=== PATIENT | female | born 1965 | race Caucasian/White ===

== ENCOUNTER 2017-07-20 08:17 | Inpatient (IN) | payer OTHER ==
[2017-07-20] MEDS: SOD CHLORIDE 0.9% 1,000 ML IV (16:32)
[2017-07-20 16:54] LABS: ADD MAN DIFF? NO
[2017-07-20 16:56] LABS: WHITE BLOOD COUNT 10.9 10^3/ul (4.8-10.8)
[2017-07-20 16:56] LABS: BASOPHIL # 0.1 10^3/ul (0.0-0.1); BASOPHILS % 0.9 % (0.0-2.0); EOSINOPHILS # 0.2 10^3/ul (0.0-0.5); EOSINOPHILS % 1.8 % (0.0-7.0); HEMATOCRIT 42.2 % (37.0-47.0); HEMOGLOBIN 14.4 g/dl (12.0-16.0); LYMPHOCYTES # 3.3 10^3/ul (0.8-2.9); LYMPHOCYTES % 30.1 % (15.0-51.0); MEAN CORPUSCULAR HEMOGLOBIN 30.7 pg (29.0-33.0); MEAN CORPUSCULAR HGB CONC 34.1 g/dl (32.0-37.0); MEAN PLATELET VOLUME 9.1 fl (7.4-10.4); MONOCYTE # 0.8 10^3/ul (0.3-0.9); MONOCYTES % 7.6 % (0.0-11.0); NEUTROPHIL # 6.4 10^3/ul (1.6-7.5); NEUTROPHILS % 59.1 % (39.0-77.0); PLATELET COUNT 234 10^3/UL (140-415); RED BLOOD COUNT 4.69 10^6/ul (4.20-5.40); RED CELL DISTRIBUTION WIDTH 12.8 % (11.5-14.5)
[2017-07-20 17:12] LABS: INR 0.93; PROTIME 12.5 Sec (11.9-14.9)
[2017-07-20 17:13] LABS: PARTIAL THROMBOPLASTIN TIME 28.8 Sec (25.0-35.0)
[2017-07-20 17:17] LABS: ANION GAP 19 (8-16); BLOOD UREA NITROGEN 16 mg/dl (7-20); CALCIUM 9.6 mg/dl (8.4-10.2); CARBON DIOXIDE 21 mmol/L (21-31); CHLORIDE 106 mmol/L (97-110); CREATININE 0.89 mg/dl (0.44-1.00); GLUCOSE 93 mg/dl (70-220); POTASSIUM 4.1 mmol/L (3.5-5.1); SODIUM 142 mmol/L (135-144)
[2017-07-20 17:38] LABS: TROPONIN-I 0.179 ng/ml (0.00-0.12)
[2017-07-20] MEDS ORDERED: ONDANSETRON 4 MG INJ IV (19:30)
[2017-07-20] MEDS: ENOXAPARIN 100 MG/ML SYG SC (19:34)
[2017-07-20] MEDS: ASPIRIN 81 MG TAB PO (19:35)
[2017-07-21 01:56] LABS: CREATINE KINASE 53 IU/L (23-200)
[2017-07-21] MEDS ORDERED: ALBUTEROL/IPRATROPIUM (NEB) 3 ML AMP HHN (02:00)
[2017-07-21] MEDS ORDERED: morphine 4 MG/ML VIAL IV (02:00)
[2017-07-21 02:08] LABS: CK INDEX 2.8; TROPONIN-I 0.109 ng/ml (0.00-0.12)
[2017-07-21] MEDS: ATORVASTATIN 20 MG TAB PO (02:25)
[2017-07-21 07:30] LABS: ADD MAN DIFF? NO
[2017-07-21 07:37] LABS: WHITE BLOOD COUNT 7.6 10^3/ul (4.8-10.8)
[2017-07-21 07:37] LABS: BASOPHIL # 0.1 10^3/ul (0.0-0.1); BASOPHILS % 1.3 % (0.0-2.0); EOSINOPHILS # 0.3 10^3/ul (0.0-0.5); EOSINOPHILS % 3.7 % (0.0-7.0); HEMATOCRIT 36.6 % (37.0-47.0); LYMPHOCYTES # 2.8 10^3/ul (0.8-2.9); LYMPHOCYTES % 36.9 % (15.0-51.0); MEAN CORPUSCULAR HEMOGLOBIN 29.6 pg (29.0-33.0); MEAN CORPUSCULAR HGB CONC 32.8 g/dl (32.0-37.0); MEAN CORPUSCULAR VOLUME 90.4 fl (82.0-101.0); MEAN PLATELET VOLUME 9.5 fl (7.4-10.4); MONOCYTE # 0.8 10^3/ul (0.3-0.9); MONOCYTES % 10.1 % (0.0-11.0); NEUTROPHIL # 3.6 10^3/ul (1.6-7.5); NEUTROPHILS % 47.7 % (39.0-77.0); PLATELET COUNT 185 10^3/UL (140-415); RED BLOOD COUNT 4.05 10^6/ul (4.20-5.40); RED CELL DISTRIBUTION WIDTH 12.7 % (11.5-14.5)
[2017-07-21 08:18] LABS: ALANINE AMINOTRANSFERASE 27 IU/L (13-69); ALBUMIN 3.7 g/dl (3.3-4.9); ALBUMIN/GLOBULIN RATIO 1.37; ALKALINE PHOSPHATASE 55 IU/L (42-121); ANION GAP 19 (8-16); ASPARTATE AMINO TRANSFERASE 15 IU/L (15-46); BILIRUBIN,INDIRECT 0.2 mg/dl (0-1.1); BILIRUBIN,TOTAL 0.2 mg/dl (0.2-1.3); BLOOD UREA NITROGEN 19 mg/dl (7-20); CALCIUM 8.9 mg/dl (8.4-10.2); CARBON DIOXIDE 20 mmol/L (21-31); CHLORIDE 108 mmol/L (97-110); CHOL/HDL RATIO 5.3 RATIO; CHOLESTEROL 191 mg/dl (100-200); CREATININE 0.91 mg/dl (0.44-1.00); GLUCOSE 90 mg/dl (70-220); HDL CHOLESTEROL 36 mg/dl (37-92); LDL CHOLESTEROL,CALCULATED 102 mg/dl; POTASSIUM 4.2 mmol/L (3.5-5.1); SODIUM 143 mmol/L (135-144); TOTAL PROTEIN 6.4 g/dl (6.1-8.1); TRIGLYCERIDES 265 mg/dl (0-149)
[2017-07-21 08:21] LABS: CREATINE KINASE 44 IU/L (23-200)
[2017-07-21 08:24] LABS: CK INDEX 2.8; CK-MB 1.24 ng/ml (0.0-2.4); TROPONIN-I 0.087 ng/ml (0.00-0.12)
[2017-07-21 08:25] LABS: HEMOGLOBIN A1C 4.9 % (0-5.9)
[2017-07-21] MEDS: LORATADINE 10 MG TAB PO (08:43)
[2017-07-21] MEDS: ACETAMINOPHEN 325 MG TAB PO ×2 (08:43→20:10)
[2017-07-21] MEDS ORDERED: LORAZEPAM 0.5 MG TAB PO (09:00)
[2017-07-21] MEDS: ASPIRIN (EC) 81 MG TAB PO (09:38)
[2017-07-21 15:10] LABS: TROPONIN-I 0.052 ng/ml (0.00-0.12)
[2017-07-21 15:22] LABS: B-TYPE NATRIURETIC PEPTIDE 937 PG/ML (0-125)
[2017-07-21] MEDS: ATORVASTATIN 40 MG TAB PO (20:10)
[2017-07-21 20:15] LABS: TROPONIN-I 0.051 ng/ml (0.00-0.12)
[2017-07-22 03:59] LABS: ADD MAN DIFF? NO
[2017-07-22 04:11] LABS: BASOPHIL # 0.1 10^3/ul (0.0-0.1); BASOPHILS % 1.4 % (0.0-2.0); EOSINOPHILS # 0.3 10^3/ul (0.0-0.5); EOSINOPHILS % 4.1 % (0.0-7.0); HEMATOCRIT 38.2 % (37.0-47.0); HEMOGLOBIN 12.8 g/dl (12.0-16.0); LYMPHOCYTES # 2.8 10^3/ul (0.8-2.9); LYMPHOCYTES % 38.1 % (15.0-51.0); MEAN CORPUSCULAR HEMOGLOBIN 30.3 pg (29.0-33.0); MEAN CORPUSCULAR HGB CONC 33.5 g/dl (32.0-37.0); MEAN CORPUSCULAR VOLUME 90.5 fl (82.0-101.0); MEAN PLATELET VOLUME 9.5 fl (7.4-10.4); MONOCYTE # 0.6 10^3/ul (0.3-0.9); MONOCYTES % 8.4 % (0.0-11.0); NEUTROPHIL # 3.5 10^3/ul (1.6-7.5); NEUTROPHILS % 47.6 % (39.0-77.0); PLATELET COUNT 204 10^3/UL (140-415); RED BLOOD COUNT 4.22 10^6/ul (4.20-5.40); RED CELL DISTRIBUTION WIDTH 12.5 % (11.5-14.5)
[2017-07-22 04:11] LABS: WHITE BLOOD COUNT 7.4 10^3/ul (4.8-10.8)
[2017-07-22 04:40] LABS: ANION GAP 18 (8-16); BLOOD UREA NITROGEN 17 mg/dl (7-20); CALCIUM 8.8 mg/dl (8.4-10.2); CARBON DIOXIDE 21 mmol/L (21-31); CHLORIDE 109 mmol/L (97-110); CREATININE 0.89 mg/dl (0.44-1.00); GLUCOSE 95 mg/dl (70-220); POTASSIUM 4.1 mmol/L (3.5-5.1); SODIUM 144 mmol/L (135-144)
[2017-07-22 04:41] LABS: CHOL/HDL RATIO 4.9 RATIO; HDL CHOLESTEROL 40 mg/dl (37-92); LDL CHOLESTEROL,CALCULATED 115 mg/dl; TRIGLYCERIDES 222 mg/dl (0-149)
[2017-07-22 04:41] LABS: CHOLESTEROL 199 mg/dl (100-200)
[2017-07-22] MEDS: LORATADINE 10 MG TAB PO ×2 (09:00→12:26)
[2017-07-22] MEDS: ASPIRIN (EC) 81 MG TAB PO ×2 (09:00→12:26)
[2017-07-22] MEDS: REGADENOSON 0.4 MG/5 ML SYG (11:35)
[2017-07-22] MEDS: ACETAMINOPHEN 325 MG TAB PO (12:26)
[2017-07-22] MEDS: ATORVASTATIN 40 MG TAB PO (20:37)
[2017-07-23 07:50] LABS: ADD MAN DIFF? NO
[2017-07-23 07:57] LABS: WHITE BLOOD COUNT 7.6 10^3/ul (4.8-10.8)
[2017-07-23 07:57] LABS: BASOPHIL # 0.1 10^3/ul (0.0-0.1); BASOPHILS % 1.4 % (0.0-2.0); EOSINOPHILS # 0.3 10^3/ul (0.0-0.5); EOSINOPHILS % 3.7 % (0.0-7.0); HEMATOCRIT 38.5 % (37.0-47.0); HEMOGLOBIN 13.3 g/dl (12.0-16.0); LYMPHOCYTES # 2.3 10^3/ul (0.8-2.9); LYMPHOCYTES % 30.1 % (15.0-51.0); MEAN CORPUSCULAR HEMOGLOBIN 30.6 pg (29.0-33.0); MEAN CORPUSCULAR HGB CONC 34.5 g/dl (32.0-37.0); MEAN CORPUSCULAR VOLUME 88.7 fl (82.0-101.0); MEAN PLATELET VOLUME 9.5 fl (7.4-10.4); MONOCYTE # 0.6 10^3/ul (0.3-0.9); MONOCYTES % 7.9 % (0.0-11.0); NEUTROPHIL # 4.3 10^3/ul (1.6-7.5); NEUTROPHILS % 56.4 % (39.0-77.0); PLATELET COUNT 210 10^3/UL (140-415); RED BLOOD COUNT 4.34 10^6/ul (4.20-5.40); RED CELL DISTRIBUTION WIDTH 12.4 % (11.5-14.5)
[2017-07-23 08:26] LABS: ANION GAP 18 (8-16); BLOOD UREA NITROGEN 15 mg/dl (7-20); CARBON DIOXIDE 21 mmol/L (21-31); CHLORIDE 107 mmol/L (97-110); CREATININE 0.85 mg/dl (0.44-1.00); GLUCOSE 88 mg/dl (70-220); POTASSIUM 4.2 mmol/L (3.5-5.1); SODIUM 142 mmol/L (135-144)
[2017-07-23] MEDS: LORATADINE 10 MG TAB PO (09:07)
[2017-07-23] MEDS: ASPIRIN (EC) 81 MG TAB PO (09:07)
[2017-07-23] MEDS: INFLUENZA VIRUS VACCINE 0.5 ML (DISPENSING) IM* (10:06)
[2017-07-23] MEDS: SOD CHLORIDE 0.9% 1,000 ML IV ×2 (12:40→22:00)
[2017-07-23] MEDS: METHYLPREDNISOLONE 125 MG INJ IV ×2 (12:41→17:43)
[2017-07-23] MEDS ORDERED: METHYLPREDNISOLONE 125 MG INJ IM (17:00)
[2017-07-23] MEDS: DIPHENHYDRAMINE 50 MG INJ IV (17:19)
[2017-07-23] MEDS: FAMOTIDINE 20 MG INJ IV (17:21)
[2017-07-23] MEDS ORDERED: IODIXANOL LOCM 100 ML BTL (18:29)
[2017-07-23] MEDS ORDERED: SOD CHLORIDE 0.9% 100 ML (18:29)
[2017-07-23] MEDS: ATORVASTATIN 20 MG TAB PO (20:26)
[2017-07-23] MEDS: APIXABAN 5 MG TABLET PO ×2 (20:27→20:28)
[2017-07-23] MEDS: ACETAMINOPHEN 325 MG TAB PO (23:33)
[2017-07-24 07:27] LABS: ADD MAN DIFF? NO
[2017-07-24 07:33] LABS: BASOPHILS % 0.1 % (0.0-2.0); HEMOGLOBIN 13.1 g/dl (12.0-16.0); LYMPHOCYTES # 1.2 10^3/ul (0.8-2.9); LYMPHOCYTES % 9.8 % (15.0-51.0); MEAN CORPUSCULAR HEMOGLOBIN 30.3 pg (29.0-33.0); MEAN CORPUSCULAR HGB CONC 34.5 g/dl (32.0-37.0); MEAN PLATELET VOLUME 9.4 fl (7.4-10.4); MONOCYTE # 0.3 10^3/ul (0.3-0.9); MONOCYTES % 2.4 % (0.0-11.0); NEUTROPHIL # 10.3 10^3/ul (1.6-7.5); NEUTROPHILS % 86.8 % (39.0-77.0); PLATELET COUNT 260 10^3/UL (140-415); RED BLOOD COUNT 4.32 10^6/ul (4.20-5.40); RED CELL DISTRIBUTION WIDTH 12.2 % (11.5-14.5)
[2017-07-24 07:33] LABS: WHITE BLOOD COUNT 11.8 10^3/ul (4.8-10.8)
[2017-07-24 08:04] LABS: ANION GAP 19 (8-16); BLOOD UREA NITROGEN 14 mg/dl (7-20); CALCIUM 9.4 mg/dl (8.4-10.2); CARBON DIOXIDE 20 mmol/L (21-31); CHLORIDE 107 mmol/L (97-110); CREATININE 0.72 mg/dl (0.44-1.00); GLUCOSE 123 mg/dl (70-220); POTASSIUM 4.2 mmol/L (3.5-5.1); SODIUM 142 mmol/L (135-144)
[2017-07-24] MEDS: APIXABAN 5 MG TABLET PO (08:26)
[2017-07-24] MEDS: LORATADINE 10 MG TAB PO (08:26)
[2017-07-24] MEDS: AMLODIPINE 2.5 MG TAB PO (08:27)
[2017-07-24] MEDS: ACETAMINOPHEN 325 MG TAB PO (08:27)
[2017-07-24] MEDS: SOD CHLORIDE 0.9% 1,000 ML IV (08:30)
[2017-07-24] MEDS: WARFARIN 5 MG TAB PO (17:28)
[2017-07-24] MEDS ORDERED: DIPHENHYDRAMINE 50 MG CAP PO (19:00)
[2017-07-24] MEDS: METOPROLOL 25 MG TAB PO (20:51)
[2017-07-24] MEDS: ATORVASTATIN 20 MG TAB PO (20:51)
[2017-07-24] MEDS: ENOXAPARIN 100 MG/ML SYG SC (21:03)
[2017-07-25 08:54] LABS: ADD MAN DIFF? NO
[2017-07-25 09:00] LABS: WHITE BLOOD COUNT 11.3 10^3/ul (4.8-10.8)
[2017-07-25 09:00] LABS: BASOPHIL # 0.1 10^3/ul (0.0-0.1); BASOPHILS % 0.7 % (0.0-2.0); EOSINOPHILS # 0.1 10^3/ul (0.0-0.5); HEMATOCRIT 36.7 % (37.0-47.0); HEMOGLOBIN 12.1 g/dl (12.0-16.0); LYMPHOCYTES # 3.9 10^3/ul (0.8-2.9); LYMPHOCYTES % 34.3 % (15.0-51.0); MEAN CORPUSCULAR HEMOGLOBIN 29.7 pg (29.0-33.0); MEAN CORPUSCULAR VOLUME 90.2 fl (82.0-101.0); MEAN PLATELET VOLUME 9.5 fl (7.4-10.4); MONOCYTE # 0.8 10^3/ul (0.3-0.9); MONOCYTES % 6.7 % (0.0-11.0); NEUTROPHIL # 6.4 10^3/ul (1.6-7.5); NEUTROPHILS % 56.9 % (39.0-77.0); PLATELET COUNT 249 10^3/UL (140-415); RED BLOOD COUNT 4.07 10^6/ul (4.20-5.40); RED CELL DISTRIBUTION WIDTH 12.6 % (11.5-14.5)
[2017-07-25 09:24] LABS: INR 1.06; PROTIME 13.9 Sec (11.9-14.9); PT RATIO 1.1
[2017-07-25 09:28] LABS: ANION GAP 15 (8-16); BLOOD UREA NITROGEN 19 mg/dl (7-20); CALCIUM 8.7 mg/dl (8.4-10.2); CARBON DIOXIDE 21 mmol/L (21-31); CHLORIDE 108 mmol/L (97-110); CREATININE 0.92 mg/dl (0.44-1.00); GLUCOSE 79 mg/dl (70-220); POTASSIUM 3.7 mmol/L (3.5-5.1); SODIUM 140 mmol/L (135-144)
[2017-07-25] MEDS: METOPROLOL 25 MG TAB PO ×2 (09:47→21:00)
[2017-07-25] MEDS: LORATADINE 10 MG TAB PO (09:47)
[2017-07-25] MEDS: ACETAMINOPHEN 325 MG TAB PO (09:47)
[2017-07-25] MEDS: ENOXAPARIN 100 MG/ML SYG SC ×2 (10:02→22:02)
[2017-07-25] MEDS: WARFARIN 5 MG TAB PO (17:34)
[2017-07-25] MEDS: HYDROCODONE/APAP (5/325) TAB PO (18:04)
[2017-07-25] MEDS: ATORVASTATIN 20 MG TAB PO (21:42)
[2017-07-25] MEDS: morphine 2 MG INJ IV (21:42)
[2017-07-26 05:30] LABS: ADD MAN DIFF? NO
[2017-07-26 05:36] LABS: BASOPHIL # 0.1 10^3/ul (0.0-0.1); BASOPHILS % 1.4 % (0.0-2.0); EOSINOPHILS # 0.2 10^3/ul (0.0-0.5); EOSINOPHILS % 2.4 % (0.0-7.0); HEMATOCRIT 38.1 % (37.0-47.0); HEMOGLOBIN 12.7 g/dl (12.0-16.0); LYMPHOCYTES # 3.9 10^3/ul (0.8-2.9); MEAN CORPUSCULAR HEMOGLOBIN 29.7 pg (29.0-33.0); MEAN CORPUSCULAR HGB CONC 33.3 g/dl (32.0-37.0); MEAN CORPUSCULAR VOLUME 89.2 fl (82.0-101.0); MEAN PLATELET VOLUME 9.3 fl (7.4-10.4); MONOCYTE # 0.7 10^3/ul (0.3-0.9); MONOCYTES % 7.7 % (0.0-11.0); NEUTROPHIL # 3.6 10^3/ul (1.6-7.5); PLATELET COUNT 263 10^3/UL (140-415); RED BLOOD COUNT 4.27 10^6/ul (4.20-5.40); RED CELL DISTRIBUTION WIDTH 12.4 % (11.5-14.5)
[2017-07-26 05:36] LABS: WHITE BLOOD COUNT 8.5 10^3/ul (4.8-10.8)
[2017-07-26 05:54] LABS: INR 1.09; PROTIME 14.2 Sec (11.9-14.9); PT RATIO 1.1
[2017-07-26 06:02] LABS: ANION GAP 14 (8-16); BLOOD UREA NITROGEN 16 mg/dl (7-20); CALCIUM 9.1 mg/dl (8.4-10.2); CARBON DIOXIDE 23 mmol/L (21-31); CHLORIDE 105 mmol/L (97-110); CREATININE 0.83 mg/dl (0.44-1.00); GLUCOSE 79 mg/dl (70-220); POTASSIUM 3.6 mmol/L (3.5-5.1); SODIUM 138 mmol/L (135-144)
[2017-07-26] MEDS: LORATADINE 10 MG TAB PO (08:54)
[2017-07-26] MEDS: METOPROLOL 25 MG TAB PO ×2 (08:55→21:00)
[2017-07-26] MEDS: ENOXAPARIN 100 MG/ML SYG SC ×2 (08:55→21:31)
[2017-07-26] MEDS: WARFARIN 5 MG TAB PO (17:01)
[2017-07-26] MEDS: ATORVASTATIN 20 MG TAB PO (21:00)
[2017-07-26 21:04] LABS: ANTI-THROMBIN III 37 mg/dL (19-30)
[2017-07-27 06:49] LABS: INR 0.97
[2017-07-27] MEDS: LORATADINE 10 MG TAB PO (09:13)
[2017-07-27] MEDS: ENOXAPARIN 100 MG/ML SYG SC ×2 (09:22→21:11)
[2017-07-27] MEDS: POLYETHYLENE GLYCOL 17 GM PACKET PO (11:58)
[2017-07-27] MEDS: METOPROLOL 25 MG TAB PO ×2 (11:59→21:07)
[2017-07-27] MEDS: WARFARIN 7.5 MG TAB PO (17:01)
[2017-07-27] MEDS: ATORVASTATIN 20 MG TAB PO (21:03)
[2017-07-28 05:34] LABS: PROTIME 13.3 Sec (11.9-14.9)
[2017-07-28] MEDS: LORATADINE 10 MG TAB PO (09:02)
[2017-07-28] MEDS: ENOXAPARIN 100 MG/ML SYG SC (09:05)
[2017-07-28] MEDS: METOPROLOL 25 MG TAB PO ×2 (11:01→21:09)
[2017-07-28] MEDS ORDERED: POLYETHYLENE GLYCOL 17 GM PACKET NGT (11:30)
[2017-07-28] MEDS: WARFARIN 5 MG TAB PO (16:55)
[2017-07-28] MEDS ORDERED: WARFARIN 10 MG TAB PO (17:00)
[2017-07-28] MEDS: ATORVASTATIN 20 MG TAB PO (21:09)
[2017-07-28] MEDS: APIXABAN 5 MG TABLET PO (21:10)
[2017-07-29 05:53] LABS: INR 1.56; PT RATIO 1.5
[2017-07-29] MEDS: LORATADINE 10 MG TAB PO ×2 (09:16→16:21)
[2017-07-29] MEDS: APIXABAN 5 MG TABLET PO ×2 (09:17→20:50)
[2017-07-29] MEDS: METOPROLOL 25 MG TAB PO ×2 (09:17→20:53)
[2017-07-29] MEDS: ATORVASTATIN 20 MG TAB PO (20:50)
[2017-07-30 05:53] LABS: INR 1.61; PROTIME 19.5 Sec (11.9-14.9); PT RATIO 1.5
[2017-07-30] MEDS ORDERED: APIXABAN 5 MG TABLET PO (08:00)
[2017-07-30] MEDS: LORATADINE 10 MG TAB PO (09:46)
[2017-07-30] MEDS: APIXABAN 5 MG TABLET PO ×2 (09:46→22:01)
[2017-07-30] MEDS: METOPROLOL 25 MG TAB PO ×2 (09:51→21:00)
[2017-07-30] MEDS: ATORVASTATIN 20 MG TAB PO (22:01)
[2017-07-31 06:19] LABS: PROTIME 18.4 Sec (11.9-14.9); PT RATIO 1.4
[2017-07-31] MEDS: METOPROLOL 25 MG TAB PO (08:08)
[2017-07-31] MEDS: APIXABAN 5 MG TABLET PO ×2 (08:08→16:28)
[2017-07-31] MEDS: LORATADINE 10 MG TAB PO (08:08)
== END 2017-07-31 17:05 | disposition home or self-care (01) | DRG 176 ==
LOC: MS1 07-26 01:12 → E/R 08:17 → TEL 19:29
DX: I26.99 Other pulmonary embolism without acute cor pulmonale (principal); I27.20 Pulmonary hypertension, unspecified; E66.9 Obesity, unspecified; M79.605 Pain in left leg; M79.604 Pain in right leg; Z79.3 Long term (current) use of hormonal contraceptives; N95.1 Menopausal and female climacteric states; F99 Mental disorder, not otherwise specified; Z68.31 Body mass index [BMI] 31.0-31.9, adult
CPT/HCPCS: 36415; 70450; 71045; 71275; 78452; 78582; 80048; 80053; 80061; 82550; 82553; 83036; 83880; 84443; 84484; 85025; 85300; 85302; 85305; 85610; 85730; 87400; 90686; 93005; 93017; 93306; 93970; 93971; 96372; 97163; 99285-25

== ENCOUNTER 2017-08-25 10:19 | Emergency (ER) | payer OTHER ==
[2017-08-25] MEDS: WARFARIN 5 MG TAB PO (15:41)
== END 2017-08-25 15:00 | disposition home or self-care (01) ==
LOC: E/R 10:19
DX: I26.99 Other pulmonary embolism without acute cor pulmonale (principal); J45.909 Unspecified asthma, uncomplicated; E66.9 Obesity, unspecified; Z68.32 Body mass index [BMI] 32.0-32.9, adult
CPT/HCPCS: 99283; Z7502